=== PATIENT | female | born 1990 | race Caucasian/White ===

== ENCOUNTER → 2017-11-19 | Outpatient (CLI) | payer BC, MEDICAID ==
[~2017-11-19] MED LIST: OXYC-360 PO; PREN0.01 PO
== END ==
LOC: HPND 08:43
PROVIDERS: ATTEND Obstetrics & Gynecology
DX: O35.8XX0 Maternal care for other (suspected) fetal abnormality and damage, not applicable or unspecified (principal)
CPT/HCPCS: 76811

== ENCOUNTER → 2017-12-17 | Outpatient (CLI) | payer BC, MEDICAID | LOC: HPND 08:20 | PROVIDERS: ATTEND Obstetrics & Gynecology | DX: O99.322 Drug use complicating pregnancy, second trimester (principal); O35.5XX0 Maternal care for (suspected) damage to fetus by drugs, not applicable or unspecified; O35.2XX0 Maternal care for (suspected) hereditary disease in fetus, not applicable or unspecified | CPT/HCPCS: 76816; 76825; 76827; 93325 ==

== ENCOUNTER → 2018-01-28 | Outpatient (CLI) | payer BC, MEDICAID | LOC: HPND 07:57 | PROVIDERS: ATTEND Obstetrics & Gynecology | DX: O35.2XX0 Maternal care for (suspected) hereditary disease in fetus, not applicable or unspecified (principal); O99.322 Drug use complicating pregnancy, second trimester; O35.5XX0 Maternal care for (suspected) damage to fetus by drugs, not applicable or unspecified | CPT/HCPCS: 76816 ==